=== PATIENT | female | born 1960 | race Caucasian/White ===

== ENCOUNTER 2017-08-01 14:35 | Emergency (ER) | payer OTHER ==
[~2017-08-01] VITALS: Ht 175.3 cm; Wt 93.0 kg
[2017-08-01 14:37] VITALS: BP 121/83
--- NOTE | 2017-08-01 14:42 | NUR ---
PATIENT AMBULATED TO BED # 3 WITH TRIAGE NURSESRIDEVI
--- NOTE | 2017-08-01 15:00 | NUR ---
PT. WAS WALKED TO THE ED DUE TO A FALL THAT PT HAS HERE IN THIS HOSPITAL [facility] , NEXT TO ADMINISTRATION. PT. STATES " I WAS WALKING DOWN THE HALLWAY FROM SEEING MY MOM AND I DIDNT SEE ANYTHING ON THE FLOOR BUT I ENDED SLIPPING AND LANDED ON MY LEFT SIDE , I DIDNT HIT MY HEAD, AND THEN I SMELLED LIKE AN APPLESAUCE SMELL SO I THINK THAT IS WHAT I SLIPPED ON". PT. DENIES ANY N/V/D. DENIES SOB, DENIES CHEST PAIN, DENIES LOOSING CONSCIOUSNESS. PT. FELL BEFORE GETTING TO THE ADMINISTRATION OFFICE. PT. HAS 5/10 PAIN ON L FOOT, L KNEE, L HIP, L ELBOW, NECK , AND L SHOULDER THAT RADIATES TO R SHOULDER, IT IS A SHARP PAIN THAT RADIATES ALL OVER THE L SIDE. PT. IS AAOX4, FAMILY AT BEDSIDE. ICE PACKS PROVIDED.ZA GONZALEZ NOTIFIED. WILL CONTINUE TO MONITOR.
[2017-08-01] MEDS ORDERED: IBUPROFEN 600 MG TAB PO ONE (15:35)
[2017-08-01] MEDS ORDERED: IBUPROFEN 800 MG TAB ONE (15:53)
--- NOTE | 2017-08-01 15:58 | NUR ---
PT TAKEN FOR XRAY AND CT
--- NOTE | 2017-08-01 17:15 | NUR ---
PT. CAME BACK FROM CT AND XRAY , RR EVEN AND UNLABORED, BED IN LOWEST POSITION.
[2017-08-01 18:16] VITALS: BP 113/59
== END 2017-08-01 18:15 | disposition home or self-care (01) ==
LOC: MED 14:35
DX: S93.602A Unspecified sprain of left foot, initial encounter (principal); S93.509A Unspecified sprain of unspecified toe(s), initial encounter; S39.012A Strain of muscle, fascia and tendon of lower back, initial encounter; S29.012A Strain of muscle and tendon of back wall of thorax, initial encounter; S46.912A Strain of unspecified muscle, fascia and tendon at shoulder and upper arm level, left arm, initial encounter; S46.911A Strain of unspecified muscle, fascia and tendon at shoulder and upper arm level, right arm, initial encounter; S13.9XXA Sprain of joints and ligaments of unspecified parts of neck, initial encounter; N20.0 Calculus of kidney; Z88.1 Allergy status to other antibiotic agents; W01.0XXA Fall on same level from slipping, tripping and stumbling without subsequent striking against object, initial encounter; Y93.01 Activity, walking, marching and hiking; Y92.89 Other specified places as the place of occurrence of the external cause; Y99.8 Other external cause status
CPT/HCPCS: 71045; 72125; 72128; 72131; 72170; 73590; 73630; 99284